=== PATIENT | female | born 1940 | race Caucasian/White ===

== ENCOUNTER → 2019-02-16 08:22 | Outpatient (CLI) | payer MEDICARE, OTHER, SELFPAY ==
--- NOTE | 2019-02-15 13:20 | FLU_PTH ---
PATIENT: ADRIANA DUNLAP LOC: [facility] U#:[id number] AGE/SX: 84/F ROOM: RE02/16/[address]: Dr. Cynthia Singh MD : 1940 BED: DIS: SPEC #: [id number] RECD: 02/15/19 16:55 STATUS: YOLY KUMAR #: [id number] STACI: 02/15/19 13:[address]: Cynthia Singh DEPT: CYTOLOGY RECD BY: Adam Zurita Tissues: A - Thyroid gland, NOS B - Thyroid gland, NOS Procedures: Special Stain Group II Surgery Specimen Level IV Cytospin Fluid Cytology Other HEADER OPERATION: Ultrasound-guided fine needle aspiration of left thyroid PRE-OP DIAGNOSIS: Thyroid nodules TISSUE SUBMITTED: A - Left thyroid FNA for cytology, B - Left thyroid FNA slides x6 DIAGNOSIS CYTOLOGY A. Fine needle aspiration, left thyroid nodule (cytospin and cell block): Negative for malignant cells. B. Fine needle aspiration, left thyroid nodule (smears): Adequate for evaluation. Negative, consistent with benign follicular nodule. AM:jessie 02/19/19 CYTOLOGY STUDY Slides are reviewed. CYTOLOGY GROSS A - Received is 35 ml of cloudy red fluid labeled with the patient's name and and designated per the requisition as left thyroid. Submitted for cytology preparation including cell block. B - Received are six smears labeled with the patient's name and designated per the requisition as left thyroid. Submitted for staining. / jessie 02/16/19 TC:5 CPT: 04046, 41907, 81130
== END ==
PROVIDERS: Referring Provider Surgery; Visit Provider Surgery
DX: E04.2 Nontoxic multinodular goiter (principal)
CPT/HCPCS: 88108; 88161; 88305; 88313

== ENCOUNTER → 2020-03-17 | Outpatient (CLI) | payer MEDICARE, OTHER, SELFPAY ==
--- NOTE | 2020-03-17 | FLU_PTH ---
PATIENT: ADRIANA DUNLAP LOC: [facility] U#:[id number] AGE/SX: 79/F ROOM: RE03/17/[address]: Dr. Cynthia Singh MD : 1940 BED: DIS: 03/17/2020 SPEC #: [id number] RECD: 03/17/20 08:33 STATUS: YOLY KUMAR #: [id number] STACI: 03/17/20 00:[address]: Cynthia Singh DEPT: CYTOLOGY RECD BY: Quentin Ochoa Tissues: A - Thyroid gland, NOS B - Thyroid gland, NOS Procedures: Special Stain Group II Surgery Specimen Level IV Cytospin Fluid HEADER OPERATION: Left-sided ultrasound-guided thyroid biopsy PRE-OP DIAGNOSIS: Abnormal ultrasound TISSUE SUBMITTED: A - Left thyroid fluid, B - Left thyroid smears (6 slides) DIAGNOSIS CYTOLOGY A. Left thyroid nodule fluid, ultrasound-guided FNA (cytospin and cell block): Scant amount of colloid nodule. B. Left thyroid nodule, ultrasound-guided FNA (smears): Suggestive of benign colloid nodule. See comment. SJ:jessie 03/19/20 COMMENT B. The specimen consists of diluted colloid, a few clusters of benign follicular cells. The evaluation is limited due to lack of adequate number of follicular cells. Correlation with clinical, radiologic findings and appropriate follow up are necessary. Please make reference to previous specimen ([id number]) fine needle aspiration, left thyroid nodule with diagnosis of negative, consistent with benign follicular nodule. CYTOLOGY STUDY Slides are reviewed. CYTOLOGY GROSS A - Received is 30 ml of red, cloudy fluid labeled with the patient's name and and designated per the requisition as left thyroid. Submitted for cytology preparation including cell block. B - Received are six smears labeled with the patient's name and designated per the requisition as left thyroid. Submitted for staining. / jessie 03/18/20 TC:5 CPT: 68792, 03902, 18059
== END | disposition home or self-care (01) ==
LOC: LABSPEC 03-18 07:15
PROVIDERS: Referring Provider Surgery; Visit Provider Surgery
DX: E04.1 Nontoxic single thyroid nodule (principal)
CPT/HCPCS: 88108; 88305; 88313